=== PATIENT | male | born 1995 | race Caucasian/White ===

== ENCOUNTER 2023-05-31 13:03 | Emergency (ER) | payer MEDICAID, OTHER ==
[~2023-05-31] VITALS: Ht 165.1 cm; Wt 76.0 kg
[~2023-05-31 13:03] MED LIST: CYCL-1 PO
[2023-05-31 13:22] VITALS: BP 123/80; PULSE 107; O2SAT 97
[2023-05-31] MEDS ORDERED: ibuprofen tablet 400 MG TABLET PO ONE (13:50)
[2023-05-31] MEDS ORDERED: PSEU-303 PO (13:53)
[2023-05-31] MEDS ORDERED: IBUP-1984 PO (13:53)
[2023-05-31 13:59] VITALS: TEMP 98.7
[2023-05-31 14:00] VITALS: RESP 17
== END 2023-05-31 15:08 | disposition home or self-care (01) ==
LOC: ER 13:03
DX: B34.9 Viral infection, unspecified (principal); Z20.822 Contact with and (suspected) exposure to COVID-19; F12.90 Cannabis use, unspecified, uncomplicated; Z79.1 Long term (current) use of non-steroidal anti-inflammatories (NSAID); Z79.899 Other long term (current) drug therapy
CPT/HCPCS: 36415; 87502; 87503; 87811; 99283